=== PATIENT | female | born 1955 | race Caucasian/White ===

== ENCOUNTER → 2023-05-19 11:12 | Outpatient (CLI) | payer MEDICARE, SELFPAY ==
--- NOTE | ~2023-05-19 | MR_ITS ---
MRI of the lumbar spine Clinical History: Back pain Technique: Axial T2-weighted images, and sagittal T1-weighted, T2-weighted, and T2 fat-sat images wer e acquired. Findings: There is a chronic mild to moderate compression deformity of L1, with loss of height, no ma rrow edema. There is minimal grade 1 anterolisthesis of L4 over L5. No suspicious bone marrow signal abnormality seen. At L1-L2, there is mild diffuse disc bulge and mild to moderate facet arthropathy. No central canal s tenosis. There is mild bilateral neural foraminal narrowing, right worse than left. At L2-L3, there is disc bulge with severe facet arthropathy, which contributes to moderate to severe central canal stenosis/thecal sac compression. There is moderate to advanced bilateral neural foramin al narrowing. At L3-L4, disc bulge and severe facet arthropathy result in severe spinal canal stenosis/thecal sac c ompression. There is moderate to severe bilateral neural foraminal narrowing. At L4-L5, there is disc bulge and severe facet arthropathy, resulting in moderate to severe central c anal stenosis/thecal sac compression. There is severe bilateral neural foraminal narrowing. At L5-S1, there is disc bulge and severe facet arthropathy. No central canal stenosis. There is mild bilateral neural foraminal narrowing, left worse than right. Paravertebral soft tissues are unremarkable. Impression: Advanced degenerative spondylosis, as detailed above. Findings are probably worst at L2-L3, L3-L4, an d L4-L5. Chronic compression fracture of L1. Minimal grade 1 anterolisthesis of L4 over L5. Reviewed, dictated and finalized at location . Impression: Advanced degenerative spondylosis, as detailed above. Findings are probably wor st at L2-L3, L3-L4, and L4-L5. Chronic compression fracture of L1. Minimal grade 1 anterolisthesis of L4 over L5.
== END ==
PROVIDERS: PCP Physician Assistant Medical; Visit Provider Physician Assistant Medical
DX: M47.816 Spondylosis without myelopathy or radiculopathy, lumbar region (principal); M43.16 Spondylolisthesis, lumbar region; M48.56XA Collapsed vertebra, not elsewhere classified, lumbar region, initial encounter for fracture
CPT/HCPCS: 72148

== ENCOUNTER 2023-08-24 12:09 | Outpatient (CLI) | payer MEDICARE, SELFPAY ==
--- NOTE | ~2023-08-24 | XR_ITS ---
EXAMINATION: XR shoulder RT min 2V INDICATION: Right shoulder pain TECHNIQUE: Four views of the right shoulder are submitted. COMPARISON: None FINDINGS: Normal alignment. No fracture. There is moderate glenohumeral and acromioclavicular joint o steoarthritis. Soft tissues are unremarkable. IMPRESSION: 1. No acute osseous abnormality. Reviewed, dictated and finalized at location B. TROPHYSIOLOGY TECHNICIAN
--- NOTE | ~2023-08-24 | XR_ITS ---
EXAMINATION: XR hip BI 2V w AP pelvis DATE: 08/24/2023 12:53 INDICATION: Hip pain TECHNIQUE: AP view the pelvis and two views of each hip were obtained. COMPARISON: None. FINDINGS: There is moderate to severe osteoarthritis of the hips. There is a subtle subcapital lucenc y of the right hip. No displaced fracture is identified. There are phleboliths of the pelvis. A bone island is noted in the left ilium. IMPRESSION: 1. Possible nondisplaced subcapital fracture of the right hip. Recommend further evaluation with CT o r MRI. Reviewed, dictated and finalized at location B. RMATICS SCIENTIST IMPRESSION: 1. Possible nondisplaced subcapital fracture of the right hip. Recommend furthe r evaluation with CT or MRI.
== END 2023-08-24 12:10 | disposition home or self-care (01) ==
PROVIDERS: PCP Physician Assistant Medical; Visit Provider Physician Assistant
DX: M25.551 Pain in right hip (principal); M25.552 Pain in left hip; M25.511 Pain in right shoulder; M16.11 Unilateral primary osteoarthritis, right hip; M16.12 Unilateral primary osteoarthritis, left hip; R93.6 Abnormal findings on diagnostic imaging of limbs
CPT/HCPCS: 73030; 73521

== ENCOUNTER 2024-01-05 12:19 | Outpatient (CLI) | payer MEDICARE, SELFPAY ==
[2024-01-05 13:05] LABS: Appearance Urine Cloudy (Clear); Bacteria Urine 1+ /hpf; Bilirubin Urine Negative (Negative); Blood Urine Negative (Negative); Color Urine Yellow (Yellow); Glucose Urine UA Negative (Negative); Ketones Urine Negative (Negative); Leukocyte Esterase Ur Negative LEU/UL (Negative); Need Manual Microscopic Reviewed; Nitrate Urine Negative (Negative); Non Pathogenic Casts 0-2; Protein Urine Negative (Negative); RBC Urine 0-2 /hpf (0-2); Specific Grav Ur 1.007 (1.001-1.035); Squamous Epithelial Cell Urine Many /hpf (Few); Urobilinogen Urine 0.2 mg/dL (<2.0)
[2024-01-05 13:07] LABS: Add Urine Microscopic? YES
--- NOTE | 2024-01-05 13:17 | ECG_ITS ---
SEE SCANNED COPY FOR CONFIRMED REPORT MTDD
== END 2024-01-05 12:20 | disposition home or self-care (01) ==
PROVIDERS: PCP Physician Assistant Medical; Visit Provider Orthopaedic Surgery
DX: E03.9 Hypothyroidism, unspecified (principal); I10 Essential (primary) hypertension; H55.09 Other forms of nystagmus
CPT/HCPCS: 81001; 93005

== ENCOUNTER 2024-03-07 13:45 | Outpatient (CLI) | payer MEDICARE, SELFPAY ==
[2024-03-07 14:58] LABS: Basophils Absolute Auto 0.1 K/mm3 (0.0-0.1); Basophils Percent Auto 0.6 % (0.2-1.2); Eosinophils Absolute Auto 0.1 K/mm3 (0-0.3); Eosinophils Percent Auto 1.2 % (0-4.4); Hematocrit 37.8 % (37.0-47.0); Hemoglobin 12.8 g/dL (12.0-15.0); Immature Granulocyte Absolute 0.04 K/mm3 (0.00-0.031); Immature Granulocyte Percent A 0.5 % (0-0.5); Lymphocytes Absolute Auto 1.99 K/mm3 (0.9-3.2); Mean Corpuscular HGB Conc 33.9 g/dl (32-36); Mean Corpuscular Hemoglobin 30.1 pg (26-34); Mean Corpuscular Volume 88.9 fl (80-100); Mean Platelet Volume 9.1 fl (7.4-10.4); Monocytes Absolute Auto 0.5 K/mm3 (0.1-0.6); Monocytes Percent Auto 6.5 % (2.6-8.5); Neutrophils Absolute Auto 5.6 K/mm3 (1.3-6.7); Neutrophils Percent Auto 67.2 % (45.5-73.1); Platelet Count Result 291 k/mm3 (150-375); Red Blood Count 4.25 M/mm3 (4.2-5.4); Red Cell Distribution Width 12.9 % (11.5-14.5); White Blood Count 8.3 K/mm3 (4.5-10.0)
[2024-03-07 14:59] LABS: Appearance Urine Clear (Clear); Bilirubin Urine Negative (Negative); Blood Urine Negative (Negative); Color Urine Yellow (Yellow); Glucose Urine UA Negative (Negative); Ketones Urine Negative (Negative); Leukocyte Esterase Ur Negative LEU/UL (Negative); Nitrate Urine Negative (Negative); Protein Urine Negative (Negative); Specific Grav Ur 1.006 (1.001-1.035); Urobilinogen Urine 0.2 mg/dL (<2.0)
[2024-03-07 15:08] LABS: INR 0.9; Prothrombin Time 12.7 Seconds (11.1-14.7)
[2024-03-07 15:09] LABS: Partial Thromboplastin Time 31.8 Seconds (22.3-36.8)
[2024-03-07 15:10] LABS: Add Urine Microscopic? NO
[2024-03-07 15:13] LABS: Albumin Level 4.3 g/dL (3.5-5.1); Anion Gap 7 mmol/L (4-12); Blood Urea Nitrogen 11 mg/dL (7-17); Calcium 9.3 mg/dL (8.4-10.2); Carbon Dioxide 29 mmol/L (22-30); Chloride 101 mmol/L (98-107); Estimated Glomerular Filt Rate > 60; Glucose 84 mg/dL (65-110); Potassium 4.1 mmol/L (3.4-5.0); Sodium 137 mmol/L (137-145)
[2024-03-07 15:40] LABS: Urine Cotinine NEGATIVE
[2024-03-07 16:10] LABS: MRSA (PCR) NOT DETECTED (NOT DETECTE)
[2024-03-07 16:13] LABS: Hemoglobin A1C 5.1 % (<5.7)
== END 2024-03-07 13:46 | disposition home or self-care (01) ==
LOC: ANHSURGERY 13:49
PROVIDERS: PCP Physician Assistant Medical; Visit Provider Orthopaedic Surgery
DX: M16.11 Unilateral primary osteoarthritis, right hip (principal); Z01.818 Encounter for other preprocedural examination
CPT/HCPCS: 80048; 80307; 81003; 82040; 83036; 85025; 85610; 85730; 86850; 86900; 86901; 87641

== ENCOUNTER 2024-03-20 02:16 | Day surgery (SDC) | payer MEDICARE, SELFPAY ==
[2024-03-07 13:54] VITALS: BMI 36.4
--- NOTE | 2024-03-07 14:08 | PC.NURSE ---
Report to the Outpatient Waiting Room, entrance under the green pavilion located off [facility], at time _9:30 AM on date __03/20/24 . Planned Procedure Time: __11:30 AM . Time changes happen often and if your time is changed the preop area will call you the afternoon before. - You and your visitor will be asked to self-screen and do not enter if you have any COVID symptoms. - A mask is optional within the hospital at this time. Patients may have clear liquids (water, carbonated beverages, clear teas, apple juice) until 3 hours prior to surgery ( 8:30 AM)with a maximum of 20 ounces. - No food from midnight until time of surgery - Infants may have breast milk until 4 hours before surgery, infant formula 6 hours prior to surgery. - Children will be allowed to drink immediately following surgery. If applicable, please bring a bottle or sippy cup to assist with drinking. Juice, water, soda, and popsicles are readily available. For infants on formula, please bring formula the day of surgery. Pacifiers are allowed. Take the following medications with a SIP of water the morning of surgery: ___ESCITALOPRAM,LEVOTHYROXINE DO NOT STOP ANY OF YOUR OTHER PRESCRIPTION MEDICATIONS PRIOR TO SURGERY ?EXCEPT THE FOLLOWING Medications to discontinue per physician HOLD ALL VITAMINS AND SUPPLEMENTS 3 DAYS PRE OP.LAST DOSE 03/16/[address] SANDS Please no make-up, nail yi, hairspray, perfume, deodorant, or body powder the day of surgery. No jewelry (including any body piercings) or valuables the day of surgery, leave them at home. Please take a shower or bath the night before, or the morning of, surgery with an antibacterial soap. Wear comfortable, loose fitting clothing. Children are encouraged to wear pajamas. - Jewelry must be removed prior to entering the operating room. Rings and piercings that are not removed may be cut off. - The hospital will not accept responsibility for valuables. - Please leave all valuables, including medications, at home the day of surgery. If you are going home after surgery, a licensed telephone directory distributor driver must drive you home. - NO public transportation without another adult if you receive anesthesia. - We recommend that an adult stay with you for 24 hours following discharge. - We also recommend that you do not drive, make important decision, drink alcoholic beverages, or take any drugs that were not prescribed by your health care provider for at least 24 hours after your discharge time. Follow any additional instructions given to you from your surgeon. If you or anyone in your household have experienced Covid symptoms in the past week, please notify your surgeon or the nurse liaison at the phone number below for possible testing. VERBAL AND WRITTEN instructions given to _PATIENT and asked if any additional questions and then verbalized understanding. Patient advised to call surgeon office or pre surgery nurse liaison [phone] if any additional questions.
[2024-03-07 14:34] VITALS: BP 153/97; PULSE 73; RESP 18; TEMP 36.7; O2SAT 98
[2024-03-20] VITALS (13 sets, daily range): BP systolic 118–185; BP diastolic 47–78; PULSE 70–81; RESP 9–18; TEMP 36–36.9; O2SAT 95–100
--- NOTE | ~2024-03-20 | XR_ITS ---
EXAMINATION: XR hip RT min 2V DATE: 03/20/2024 16:15 INDICATION: Postoperative evaluation following right total hip arthroplasty TECHNIQUE: Anteroposterior and lateral views of the right hip were obtained. COMPARISON: Intraoperative radiograph dated 01/05/2024 FINDINGS: Interval placement of a right total hip arthroplasty which appears well seated in near anatomic align ment. Surgical clips and expected subcutaneous gas in the postoperative bed. No fractures identified . IMPRESSION: 1. Right total hip arthroplasty, negative for postoperative purposes. Reviewed, dictated and finalized at location A.
--- NOTE | 2024-03-20 07:14 | WPDHPUPDATE1 ---
History and Physical Update Update Date/Time: 03/20/24 07:14 History and Physical has been reviewed, including an updated exam of the patient. There are NO changes in the patient's condition. Risks, benefits, and alternatives have been discussed and questions answered. Patient agrees to proceed with procedure.
--- NOTE | 2024-03-20 08:01 | WPDANESEPPF ---
Anes - Initial Pre Proc Eval Procedure: Operation Date: 03/20/24 12:00 Proposed Procedures p Right Total Hip Arthroplasty - Sandoval Negrete MD Date/Time: 03/20/24 08:01 Surgeon: Sandoval Negrete MD Pre Op Diagnosis: Rt Hip DJD Patient Data Age: 69 Gender: F Height: 1.57 m Weight: 90.4 kg Last Vital Signs Temp 36.7 C 03/07/24 14:34 Pulse 73 03/07/24 14:34 Resp 18 03/07/24 14:34 BP 153/97 H 03/07/24 14:34 Pulse Ox 98 03/07/24 14:34 O2 Del Method Room Air 03/07/24 14:34 Allergies Allergy/AdvReac Type Severity Reaction Status Date / Time No Known Allergies Allergy Unknown Verified 03/20/24 09:35 Home Medications Medication Instructions Recorded Confirmed Type cholecalciferol (vitamin D3) 25 25 mcg PO DAILY 12/29/22 03/12/24 History mcg (1,000 unit) capsule mecobalamin (vitamin B12) 1,000 1,000 mcg PO DAILY 12/29/22 03/12/24 History mcg chewable tablet omega-3 fatty acids 1,000 mg 1,000 mg PO DAILY 12/29/22 03/12/24 History capsule lisinopril 20 mg tablet 20 mg PO DAILY #90 tabs 10/18/23 03/12/24 Rx escitalopram oxalate 10 mg tablet See Rx Instructions .Route 01/17/24 03/12/24 Rx .COMPLEX #90 tabs levothyroxine 50 mcg tablet See Rx Instructions .Route 01/17/24 03/12/24 Rx .COMPLEX #90 tabs celecoxib 100 mg capsule 100 mg PO BID 02/16/24 03/12/24 History furosemide 20 mg tablet 20 mg PO DAILY #30 tabs 03/01/24 03/12/24 Rx acetaminophen 500 mg capsule 1,000 mg PO Q6H PRN Pain 03/07/24 03/12/24 History ascorbic acid (vitamin C) 1,000 mg 1,000 mg PO DAILY 03/07/24 03/12/24 History tablet chlorhexidine gluconate 4 % 1 applic topical DAILY #237 mL 03/09/24 03/12/24 Rx topical liquid (Hibiclens) Patient hx anesthesia problems: none Family hx anesthesia problems: none Results Review: All pre-operative results and documents have been reviewed as part of the pre-operative evaluation. [facility] Past Medical History Medical History Bilateral hip pain Degenerative joint disease (DJD) of hip Hypertension Hypothyroidism Low back pain Lumbar spondylosis Right shoulder pain Rotator cuff tendonitis Surgical History Surgical History (Updated 03/20/24 @ 08:02 by Gigi Gomes DO) History of appendectomy 1987 History of laparoscopic cholecystectomy 1986 History of open reduction and internal fixation (ORIF) procedure left elbow 2014 History of partial hysterectomy 1988 History of spinal surgery 1994 History of total right knee replacement 2014 History of tubal ligation Family History Family History Father Lung cancer Mother Lung cancer Type 2 diabetes mellitus Heart disease Hypertension Sibling Diabetes mellitus Hypertension Thyroid disorder Grandparent Diabetes mellitus Grandparent Diabetes mellitus Cancer Social History Social History Smoking status: Never smoker Additional smoking assessment comments: DENIES ANY FORM OF TOBACCO USE Alcohol intake: never Substance use: never Substance use type: does not use Lack of Transportation: No Lack of Food: Never True Current Housing: I Have Housing Concerned About Future Housing: No Difficulty Paying Gas/Electric Bills: No Difficulty Paying for Meds: No Currently Unemployed: No Education: Associate Degree Difficulty w/ Childcare or Family Care: No Living arrangements: with family Occupation/Education: occupation 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
[2024-03-20] MEDS: ACETAMINOPHEN 500 MG TABLET 1000 MG PO (09:08)
[2024-03-20] MEDS: LACTATED RINGERS 1,000 ML 30 ML IV CONT ×2 (10:08→16:22)
[2024-03-20] MEDS: TRANEXAMIC ACID 1,000MG/ISO100 1,000 MG/100 ML BAG 200 MG IVPB (11:17)
[2024-03-20] MEDS: ceFAZolin 2 GM/D5W 50 ML 2 GM/50 ML BAG IVPB ×2 (12:48→21:16)
[2024-03-20] MEDS: SODIUM CHLORIDE 0.9% IV 37.7 ML, MORPHINE SULFATE INJ (*CRX) 2 MG, ROPivacaine HCL 1% 2... INFILTRATE (15:01)
[2024-03-20] MEDS: TRANEXAMIC ACID 1,000 MG/10 ML AMPUL 1000 MG IV PUSH (15:04)
--- NOTE | 2024-03-20 16:04 | W.PM.PROC2 ---
Procedure Note - Detailed Date of Procedure 03/20/24 Pre-op Diagnosis Rt Hip DJD Post-op Diagnosis Same Procedure Performed R BRANDO Surgeon Sandoval Negrete MD Anesthesia General Description of Procedure THE PATIENT WAS TAKEN TO THE OPERATING ROOM IN STABLE CONDITION AND WAS PLACED IN THE LATERAL DECUBITUS AND THE RIGHT LOWER EXTREMITY WAS PREPPED AND DRAPED IN THE STERILE FASHION. INCISION WAS MADE IN THE POSTERIOR LATERAL SIDE OF THE HIP, DOWN TO THE FASCIA LAYER. THE FASCIA WAS INCISED. THE HIP WAS EXPOSED. THE SHORT EXTERNAL ROTATORS WERE EXPOSED. THE SCIATIC NERVE WAS IDENTIFIED. INCISION WAS MADE THROUGH THE SHORT EXTERNAL ROTATORS AND THE CAPSULE OF THE HIP JOINT. THE HIP WAS DISLOCATED. AN OSTEOTOMY WAS MADE TO THE FEMORAL NECK ABOUT 1 CM PROXIMAL TO THE LESSER TROCHANTER. THE ACETABULUM WAS EXPOSED. THERE WAS SEVERE DJD SEEN. BEGINNING WITH A 44 REAMER THE ACETABULUM WAS REAMED TO 52 MM. A 52 MM TRIAL WAS PLACED IN 35 DEG OF ABDUCTION AND ANTEVERSION WAS IN ALIGNMENT WITH THE TRANS ACETABULAR LIGAMENT. THE FIT WAS EXCELLENT. THE TRIAL WAS REMOVED. A 52 MM TRIDENT II COMPONENT WAS THEN TAPPED IN TO PLACE IN 35 DEG OF ABDUCTION AND ANTEVERSION IN ALIGNMENT WITH THE TRANSVERSE ACETABULAR LIGAMENT. THE FIT WAS EXCELLENT. SCREWS WERE PLACED WITH GOOD BITES. THE ACETABULAR LINER WAS PLACED AND CHECKED FOR STABILITY. NEXT THE FEMUR WAS PREPARED WITH INITIAL CANAL FINDER THEN SEQUENTIAL BROACHING UNTIL A 5 BROACH FIT WELL IN 15 OF ANTEVERSION. A +2.5 STANDARD OFFSET NECK WITH 36 MM HEAD TRIAL WAS PLACED. THE SHUCK TEST WAS EXCELLENT AND THE STABILITY IN FLEXION AND ROTATION WAS EXCELLENT. LEG LENGTHS WERE GROSSLY EQUAL. TRIALS WERE REMOVED. A JONH INSIGNIA STEM WAS PLACED WITH A STANDARD OFFSET NECK. THE FIT WAS EXCELLENT IN 15 DEG OF ANTEVERSION. A +2.5 CERAMIC 36 MM FEMORAL HEAD WAS PLACED. THE HIP WAS TRIALED AND THE STABILITY WAS EXCELLENT WERE THE LEG LENGTHS AND THE SHUCK TEST. THE WOUND WAS IRRIGATED WITH STERILE BETADINE AND WATER FOR 3 MIN. THEN WASHED AGAIN. THE SCIATIC NERVE WAS IDENTIFIED AGAIN. THE CAPSULE AND THE EXTERNAL ROTATORS WERE APPROXIMATED WITH NUMBER 1 VICRYL. THE FASCIA WITH No 2 QUIL AND THE SUB CUTANEOUS LAYER WITH 2-0 ABSORBABLE SUTURE AND TANA FOR THE SKIN. STERILE DRESSING WAS APPLIED. PATIENT WAS PLACED BACK ON TO THE SUPINE POSITION AND WAS EXTUBATED Estimated Blood Loss 350 Complications No immediate complications Condition Stable Disposition PACU
--- NOTE | 2024-03-20 17:49 | ADMGEN ---
This patient, Trini Cain, was admitted to 3 [facility] Surg Room 304-01. Patient/family oriented to hospital policies and general routines including ID bracelet, bed and alarms, visiting hours, pain management, procedures, bathroom and other care routines, personal items, smoking policy, room service/diet, and visiting hours. Information on how to activate the Rapid Response Team has been discussed. Patient/Family are encouraged to report perceived risks to care and to ask questions if they do not understand what they are told or what they should do.
[2024-03-20] MEDS: SODIUM CHLORIDE 0.9% IV 1,000 ML 125 ML IV CONT (17:53)
[2024-03-20] MEDS: ASPIRIN 325 MG ENTERIC TABLET PO (20:20)
[2024-03-20] MEDS: FAMOTIDINE 20 MG TABLET PO (20:20)
[2024-03-20] MEDS: CELECOXIB 100 MG CAPSULE PO (20:20)
[2024-03-20] MEDS: SENNA/DOCUSATE SODIUM TABLET 2 TAB PO (20:21)
[2024-03-21] MEDS: oxyCODONE/ACETAMINOPHEN (*CRX) 10-325 MG TABLET 1 TAB PO (00:35)
[2024-03-21] MEDS: SODIUM CHLORIDE 0.9% IV 1,000 ML 125 ML IV CONT ×2 (00:36→04:17)
[2024-03-21 05:13] VITALS: O2SAT 98
[2024-03-21] MEDS: ceFAZolin 2 GM/D5W 50 ML 2 GM/50 ML BAG IVPB ×2 (05:13→13:27)
[2024-03-21] MEDS: LEVOTHYROXINE SODIUM 50 MCG TABLET BY MOUTH (05:15)
[2024-03-21 05:18] VITALS: O2SAT 96
[2024-03-21 05:41] VITALS: BP 140/62; PULSE 72; RESP 16; TEMP 36.6; O2SAT 99
[2024-03-21 07:05] LABS: Anion Gap 6 mmol/L (4-12); Blood Urea Nitrogen 13 mg/dL (7-17); Calcium 8.2 mg/dL (8.4-10.2); Carbon Dioxide 27 mmol/L (22-30); Chloride 103 mmol/L (98-107); Estimated CRCL calculation 54 ml/min; Estimated Glomerular Filt Rate > 60; Glucose 131 mg/dL (65-110); Potassium 4.6 mmol/L (3.4-5.0); Sodium 136 mmol/L (137-145)
[2024-03-21 07:17] LABS: Basophils Percent Auto 0.1 % (0.2-1.2); Hematocrit 30.7 % (37.0-47.0); Hemoglobin 10.1 g/dL (12.0-15.0); Immature Granulocyte Absolute 0.12 K/mm3 (0.00-0.031); Immature Granulocyte Percent A 0.6 % (0-0.5); Lymphocytes Absolute Auto 0.81 K/mm3 (0.9-3.2); Lymphocytes Percent Auto 4.1 % (18.3-44.2); Mean Corpuscular HGB Conc 32.9 g/dl (32-36); Mean Corpuscular Volume 91.1 fl (80-100); Mean Platelet Volume 9.7 fl (7.4-10.4); Monocytes Absolute Auto 1.1 K/mm3 (0.1-0.6); Monocytes Percent Auto 5.5 % (2.6-8.5); Neutrophils Absolute Auto 17.7 K/mm3 (1.3-6.7); Neutrophils Percent Auto 89.7 % (45.5-73.1); Platelet Count Result 270 k/mm3 (150-375); Red Blood Count 3.37 M/mm3 (4.2-5.4); Red Cell Distribution Width 13.2 % (11.5-14.5); White Blood Count 19.7 K/mm3 (4.5-10.0)
[2024-03-21 08:00] VITALS: BP 153/60; PULSE 82; RESP 18; TEMP 36.6; O2SAT 97
[2024-03-21] MEDS: FAMOTIDINE 20 MG TABLET PO (08:41)
[2024-03-21] MEDS: ESCITALOPRAM OXALATE 10 MG TABLET BY MOUTH (08:41)
[2024-03-21] MEDS: FUROSEMIDE 20 MG TABLET PO (08:41)
[2024-03-21] MEDS: oxyCODONE/ACETAMINOPHEN (*CRX) 5-325 MG TABLET 1 TABLET PO (08:42)
[2024-03-21] MEDS: CHOLECALCIFEROL 1,000 UNITS TABLET 1000 UNITS PO (08:44)
[2024-03-21] MEDS: ASCORBIC ACID 500 MG TABLET 1000 MG PO (08:44)
[2024-03-21] MEDS: SENNA/DOCUSATE SODIUM TABLET 2 TAB PO (08:44)
[2024-03-21] MEDS: lisinopriL 20 MG TABLET PO (08:45)
[2024-03-21] MEDS: ASPIRIN 325 MG ENTERIC TABLET PO (08:45)
[2024-03-21] MEDS: CELECOXIB 100 MG CAPSULE PO (08:45)
[2024-03-21] MEDS: ONDANSETRON INJ 4 MG/2 ML VIAL IV PUSH (08:49)
[2024-03-21] MEDS: polyethylene glycoL 3350 17 GM POWD.PACK PO (08:51)
--- NOTE | 2024-03-21 10:56 | PM.PNORT ---
Progress Note: A&P Assessment and Plan (1) Degenerative joint disease (DJD) of hip: Qualifiers: Osteoarthritis type: primary Laterality: right Qualified Code(s): M16.11 - Unilateral primary osteoarthritis, right hip Code(s): M16.9 - Osteoarthritis of hip, unspecified Status: Acute Assessment and Plan: POD 1 DOING WELL. OK TO DC HOME F/U IN 3 WEEKS. Subjective Subjective Date/Time Seen: 03/21/24 10:56 Interval history: POD 1 DOING WELL. NO CALF PAIN Exam Extrem: Other: VSS AFEBRILE DRESSING DRY NV INTACT NEG HOMANS SIGN CALF AND THIGH NON TENDER Objective Data Vital Signs Vital Signs: Vital Signs - 24 hr 03/20/24 11:08 03/20/24 15:59 03/20/24 16:14 Temperature 36.7 C 36.4 C Pulse Rate 73 81 70 Respiratory Rate 16 10 L 9 L Blood Pressure 158/78 H 118/70 137/69 Pulse Oximetry 99 99 99 Oxygen Delivery Room Air Simple Face Mask Simple Face Mask Oxygen Flow Rate 8 8 03/20/24 16:29 03/20/24 16:44 03/20/24 16:59 Temperature Pulse Rate 79 76 80 Respiratory Rate 12 10 L 11 L Blood Pressure 145/63 H 145/58 H 142/68 H Pulse Oximetry 99 95 97 Oxygen Delivery Room Air Nasal Cannula Nasal Cannula Oxygen Flow Rate 2 2 03/20/24 17:14 03/20/24 17:30 03/20/24 17:45 Temperature 36.2 C L 36.1 C L Pulse Rate 78 76 75 Respiratory Rate 12 16 16 Blood Pressure 146/57 H 131/61 121/54 L Pulse Oximetry 98 99 99 Oxygen Delivery Nasal Cannula Oxygen Flow Rate 2 03/20/24 18:15 03/20/24 20:44 03/20/24 21:41 Temperature 36.0 C L 36.3 C L Pulse Rate 71 70 Respiratory Rate 18 16 Blood Pressure 131/47 L 128/58 L Pulse Oximetry 100 100 100 Oxygen Delivery Nasal Cannula Oxygen Flow Rate 2 03/20/24 22:49 03/21/24 05:13 03/21/24 05:18 Temperature 36.9 C Pulse Rate 72 Respiratory Rate 16 Blood Pressure 185/61 H Pulse Oximetry 99 98 96 Oxygen Delivery Nasal Cannula Room Air Oxygen Flow Rate 2 03/21/24 05:41 03/21/24 08:14 03/21/24 08:00 Temperature 36.6 C 36.6 C Pulse Rate 72 82 Respiratory Rate 16 18 Blood Pressure 140/62 153/60 H Pulse Oximetry 99 97 Oxygen Delivery Room Air Oxygen Flow Rate Intake/Output Intake/Output: Intake & Output 03/18/24 03/19/24 03/20/24 03/21/24 23:59 23:59 23:59 23:59 Intake Total 150 1500.0 Output Total 100 Balance 150 1400.0 Meds/Results Medications: Active Medications Generic Name Dose Route Start Last Admin Trade Name Freq PRN Reason Stop Dose Admin Ascorbic Acid 1,000 mg 03/21/24 09:00 03/21/24 08:44 Ascorbic Acid 500 Mg Tablet PO 1,000 mg DAILY MARSHALL Administration Aspirin 325 mg 03/20/24 21:00 03/21/24 08:45 Aspirin 325 Mg Enteric Tablet PO 325 mg Q12HR MARSHALL Administration Celecoxib 100 mg 03/20/24 17:00 03/21/24 08:45 Celecoxib 100 Mg Capsule PO 100 mg BID MARSHALL Administration Diazepam 5 mg 03/20/24 13:04 Diazepam (*Crx) 5 Mg Tablet PO Q6H PRN Anxiety/Muscle Spasm Diphenhydramine HCl 25 mg 03/20/24 13:04 Diphenhydramine Hcl Inj 50 Mg/Ml Vial IV PUSH Q6H PRN Itching Escitalopram Oxalate 10 mg 03/21/24 09:00 03/21/24 08:41 Escitalopram Oxalate 10 Mg Tablet BY MOUTH 10 mg DAILY MARSHALL Administration Famotidine 20 mg 03/20/24 21:00 03/21/24 08:41 Famotidine 20 Mg Tablet PO 20 mg Q12HR MARSHALL Administration Furosemide 20 mg 03/21/24 09:00 03/21/24 08:41 Furosemide 20 Mg Tablet PO 20 mg DAILY MARSHALL Administration Hydromorphone HCl 1 mg 03/20/24 13:04 Hydromorphone Hcl Inj (*Crx) 1 Mg/Ml Syr IV PUSH Q2H PRN Breakthrough Pain Rated 7-10 or NPO Hydromorphone HCl 0.5 mg 03/20/24 13:04 Hydromorphone Hcl Inj (*Crx) 1 Mg/Ml Syr IV PUSH Q2H PRN Breakthrough Pain Rated 4-6 or NPO Cefazolin Sodium 2 gm in 50 mls @ 100 mls/hr 03/20/24 22:00 03/21/24 05:43 Ancef 2 Gm/D5w 50 Ml IVPB 03/21/24 14:29 Infused Q8H MARSHALL Infusion Ibuprofen 800 mg
--- NOTE | 2024-03-21 10:59 | PM.DS ---
DS: Admitting Diagnosis Discharge Date 03/21/24 Admitting Diagnosis RIGHT HIP DJD DS: Discharge Diagnosis Discharge Diagnosis (1) Degenerative joint disease (DJD) of hip: Qualifiers: Osteoarthritis type: primary Laterality: right Qualified Code(s): M16.11 - Unilateral primary osteoarthritis, right hip Code(s): M16.9 - Osteoarthritis of hip, unspecified Status: Acute DS: Summary Hospital Course Reason for hospitalization: R BRANDO Hospital Course: PATIENT WAS ADMITTED S/P TOTAL HIP ARTHROPLASTY FOR POSTOPERATIVE MEDICAL MANAGEMENT, PAIN CONTROL AND MOBILIZATION WITH PHYSICAL AND OCCUPATIONAL THERAPY. THE PATIENT PROGRESSED WELL WITH PT/OT. LABS AND VITALS REMAINED STABLE AND PAIN WELL CONTROLLED. THE PATIENT HAS BEEN CLEARED TO BE DISCHARGED HOME. FOLLOW UP APPOINTMENT SCHEDULED. DISCHARGE INSTRUCTIONS DISCUSSED AT LENGTH WITH THE PATIENT. MEDICATIONS REVIEWED. Status at Discharge Cognitive/behavioral status at discharge: STABLE Time Spent with Patient Time attestation: Total time spent providing and/or coordinating discharge services: DS: Data Data Completed and Pending Labs on day of discharge: Labs from last 24 hours 03/21/24 05:58 WBC 19.7 H RBC 3.37 L Hgb 10.1 L Hct 30.7 L MCV 91.1 MCH 30.0 MCHC 32.9 RDW 13.2 Plt Count 270 MPV 9.7 Immature Gran % (Auto) 0.6 H Neut % (Auto) 89.7 H Lymph % (Auto) 4.1 L [place] % (Auto) 5.5 Eos % (Auto) 0.0 Baso % (Auto) 0.1 L Lymph # (Auto) 0.81 L [place] # (Auto) 1.1 H Eos # (Auto) 0.0 Baso # (Auto) 0.0 Abs Immat Gran (auto) 0.12 H Absolute Neuts (auto) 17.7 H Absolute Nucleated RBC 0.000 Nucleated RBC % 0.0 Sodium 136 L Potassium 4.6 Chloride 103 Carbon Dioxide 27 Anion Gap 6 BUN 13 Creatinine 0.90 Estim Creat Clear Calc 54 Estimated GFR > 60 Glucose 131 H Calcium 8.2 L Procedures/Treatments: R BRANDO Discharge Plan Discharge Patient Disposition: Home Health Service Discharge Instructions: Post Op Total Hip Replacement Instructions Dr. Sandoval Negrete [phone] Your dressing will be changed prior to your discharge. You will be sent home with one additional dressing to be changed on post op day 7 by the home health RN. You may remove the dressing on post op day 14. Your incision was closed with dermabond, allow the dermabond to fall off naturally once your dressing is removed. Do not pull at the dermabond or disrupt incision healing. You may shower with your dressing but do not submerge in a bath tub. Do not drive or operate machinery until you are released by Dr. Negrete. Do not walk without a walker for any reason until you are released by Dr. Negrete. Continue to apply ice to the hip intermittently for additional pain relief. Protect your skin with a towel or pillow case. Continue to follow strict total hip replacement precautions. Your first post op appointment was sent to you via mail preoperatively. If you have any questions or are unable to make your appointment, please contact our office for scheduling questions. Your medications have been sent to your pharmacy. You have been sent home with pain medication. Please merchandise pickup/receiving associate an over the counter stool softener to prevent constipation due to narcotic use. Please keep this in mind during your postoperative recovery. If you are not experiencing regular bowel movements, please contact our office for further instructions. Please contact our office with any questions/concerns regarding your hip at [phone]. TAKE 2 ADULT STRENGTH ASPIRIN (325 MG) PER DAY FOR 3 WEEKS TO PREVENT BLOOD CLOTS Patient Instructions: Antibiotic Form Stand Alone Forms: General Discharge Information Follow-up/Referrals: Sandoval Negerte MD [Physician] - Keep Reg. Scheduled Appt. Discharge Medications: New oxycodone-acetaminophen [Percocet] 5-325 mg tablet 1 tablet PO Q6H PRN (Reason: pain) Qty: 30 0RF Continued mecobalamin (vitamin B1
[2024-03-21 12:00] VITALS: BP 130/53; PULSE 71; RESP 20; TEMP 36.8; O2SAT 99
--- NOTE | 2024-03-21 14:28 | WPDANESPN ---
Anes - Prog Note Post-Op Date/Time: 03/21/24 14:28 Cardiovascular status: normal Respiratory status: normal Airway patency: baseline Mental status: baseline Post-Op hydration status: other (anemia) Vital Signs: Last Vital Signs Temp 98.2 F 03/21/24 12:00 Pulse 71 03/21/24 12:00 Resp 20 03/21/24 12:00 BP 130/53 L 03/21/24 12:00 Pulse Ox 99 03/21/24 12:00 O2 Del Method Room Air 03/21/24 08:14 O2 Flow Rate 2 03/21/24 05:13 Pain Score (VAS): 0/10 I/O: Intake & Output 03/20/24 03/21/24 03/21/24 23:59 07:59 15:59 Intake Total 100 1350.0 200 Output Total 100 Balance 100 1350.0 100 Laboratory Tests 03/21/24 05:58 03/21/24 05:58 03/21/24 05:58 WBC 19.7 H RBC 3.37 L Hgb 10.1 L Hct 30.7 L MCV 91.1 MCH 30.0 MCHC 32.9 RDW 13.2 Plt Count 270 MPV 9.7 Immature Gran % (Auto) 0.6 H Neut % (Auto) 89.7 H Lymph % (Auto) 4.1 L [place] % (Auto) 5.5 Eos % (Auto) 0.0 Baso % (Auto) 0.1 L Lymph # (Auto) 0.81 L [place] # (Auto) 1.1 H Eos # (Auto) 0.0 Baso # (Auto) 0.0 Abs Immat Gran (auto) 0.12 H Absolute Neuts (auto) 17.7 H Absolute Nucleated RBC 0.000 Nucleated RBC % 0.0 Sodium 136 L Potassium 4.6 Chloride 103 Carbon Dioxide 27 Anion Gap 6 BUN 13 Creatinine 0.90 Estim Creat Clear Calc 54 Estimated GFR > 60 Glucose 131 H Calcium 8.2 L Post-procedural complaints: none Patient Feedback: Patient satisfied with anesthetic care.
== END 2024-03-21 14:50 | disposition home health service (06) ==
LOC: ANHSURGERY 13:13 → ANH3MEDSUR 17:21
PROVIDERS: PCP Physician Assistant Medical; Visit Provider Orthopaedic Surgery
PROC: (CPT 27130; principal; 2024-03-20 12:00)
DX: M16.11 Unilateral primary osteoarthritis, right hip (principal); I10 Essential (primary) hypertension; E03.9 Hypothyroidism, unspecified; M47.816 Spondylosis without myelopathy or radiculopathy, lumbar region; E66.9 Obesity, unspecified; Z68.36 Body mass index [BMI] 36.0-36.9, adult
CPT/HCPCS: 27130; 36415; 73502; 80048; 80307; 81003; 82040; 83036; 85025; 85610; 85730; 86850; 86900; 86901; 87641; 97110; 97161; 97165; 97530; 97535; A9270; C1776; J0171; J0330; J0690; J1100; J1170; J1885; J2250; J2270; J2371; J2405; J2704; J2795; J3010; J7030; J7120

== ENCOUNTER 2024-08-16 11:33 | Outpatient (CLI) | payer MEDICARE, SELFPAY ==
[2024-08-16 11:53] LABS: Add Urine Microscopic? NO; Appearance Urine Clear (Clear); Bilirubin Urine Negative (Negative); Blood Urine Negative (Negative); Color Urine Yellow (Yellow); Glucose Urine UA Negative (Negative); Ketones Urine Negative (Negative); Leukocyte Esterase Ur Negative LEU/UL (Negative); Nitrate Urine Negative (Negative); Protein Urine Negative (Negative); Specific Grav Ur 1.007 (1.001-1.035); Urobilinogen Urine 0.2 mg/dL (<2.0); pH Urine 6.5 (5.0-9.0)
--- NOTE | 2024-08-16 12:20 | ECG_ITS ---
Test Date: 2024-08-16 12:35:27 Measurements Intervals Paul Rate: 66 P: 68 CA: 169 QRS: 12 QRSD: 87 T: 30 QT: 369 QTc: 387 Interpretive Statements SINUS RHYTHM No previous ECG available for comparison Electronically Signed On 08-16-2024 13:58:27 CYBER SECURITY INSTRUCTOR by Luisito Weems M.D.
== END 2024-08-16 11:34 | disposition home or self-care (01) ==
PROVIDERS: PCP Physician Assistant Medical; Visit Provider Nurse Practitioner Family
DX: R53.83 Other fatigue (principal); I10 Essential (primary) hypertension
CPT/HCPCS: 81003; 93005

== ENCOUNTER 2024-10-17 13:44 | Outpatient (CLI) | payer MEDICARE, SELFPAY ==
--- OUTSIDE RECORDS SUMMARY | 2024-10-17 14:46 | XMS_ITS | Patient Health Summary ---
Author Organization [facility] Address [address] [place] [address] Care Team Providers Care Paper Winder Name Role Phone Unavailable Primary Care Provider Unavailabl e Note from [facility],non-owned Affiliates and Associated Physician Practices is amultiple site organization consisting of ambulatory clinics and hospital sitesin [place], [place], [place] and [place]. This disclosure is being madepursuant to the Care Everywhere program and may not contain all information available regarding this patient. Last updated 18.[facility] Social History Tobacco Use Types Packs/Day Years Used Date Smoking Tobacco: Never Assessed Sex and Gender Information Value Date Recorded Sex Assigned at Not on file Gender Identity Not on file Sexual Orientation Not on file
--- OUTSIDE RECORDS SUMMARY | 2024-10-17 14:46 | XMS_ITS | Continuity of Care Document ---
Author Organization [facility] Address [address] [place] [address] Phone Care Team Providers Care People Manager Name Role Phone Gina Davila DO Unavailable Unavailable Advance Directives Directive Yes / No Effective Date File Name No Information Encounters Encounter Description Practice Location Reason(s) For Visit Diagnoses Date Provider Providers Copied on Encounter [facility], [address], [place], [place], [id number], [place] tel:[phone] [facility] No Information Giovanni Fuentes. [address] [address], [place], [place], [id number], [place]. tel:[phone] Referring Provider: Shabbir Grace [address] [address], [place], [address] . tel:[phone] Family History Family Member Type Diagnosis Age At Onset No Information Payers Payer name Insurance type Covered democrat ID Authoriza tirebecca(s) C[employer]lewis [id number] Social History Type Description Quantity Date Captured Comments Sex Female Smoking Status No Information Chief Complaint And Reason For Visit No Information Reason For Referral Reason For Referral No Information History Of Present Illness Encounter Date Complaint History Of Prese nt Illness No Information Functional Status Date Functional Assessmen t No Information Instructions Date Instruction Additional Infor mation No Information Assessments Type Assessment Date No Information Patient Care Teams Name Effective Dates (start - stop) Status Members No Information
--- OUTSIDE RECORDS SUMMARY | 2024-10-17 14:46 | XMS_ITS | Clinical Summary ---
Author Organization [facility] [employer] Address [address] [place] [address] Care Team Providers Care Miller Helper Name Role Phone Unavailable Primary Care Provider Unavailabl e Source Comments [facility],non-owned Affiliates and Associated Physician Practices is amultiple site organization consisting of ambulatory clinics and hospital sitesin [place], [place], [place] and [place]. This disclosure is being madepursuant to the Care Everywhere program and may not contain all information available regarding this patient. Last updated 18.[facility] Social History Tobacco Use Types Packs/Day Years Used Date Smoking Tobacco: Never Assessed Sex and Gender Information Value Date Recorded Sex Assigned at Not on file Gender Identity Not on file Sexual Orientation Not on file Plan of Treatment Health Maintenance Due Date Last Done Comments BONE DENSITY TESTING 1955 COLOGUARD (AGES 45-75) - COL ON CA SCREENING 1954 COLON MONITORING 1954 COLONOSCOPY - COLON CA SCREENING 1954 CT COLONOGRAPHY - COLON CA SCREENING 1954 Colorectal Cancer Screening 1954 FIT - COLON CA SCREENING 1954 FLEX SIG - COLON CA SCREENING 1954 LIPID TESTING 1954 MAMMOGRAM 1954 HEPATITIS C SCREENING 02/28/1972 DTAP/TDAP/TD VACCINES (1 - Tdap) 1973 PNEUMOCOCCAL VACCINE 50+ (1 of 1 - PCV) 2004 ZOSTER VACCINE (1 of 2) 2004 COVID-19 VACCINE ( - 2023-2 5 season) 2024 INFLUENZA VACCINE (#1) 2024 DEPRESSION SCREENING 09/12/2024 Respiratory Syncytial Virus (RSV) Vaccine Pt: or over 60 yrs (1 - 1-dose 75+ series) 2029 HEPATITIS B VACCINE Aged Out No longe r eligible based on patient's age to complete this topic HIB VACCINE Aged Out No longer eligi ble based on patient's age to complete this topic HPV VACCINE Aged Out No longer eligi ble based on patient's age to complete this topic MENINGOCOCCAL (Group B) VACCINE Aged Out No longer eligible based on patient's age to complete this topic MENINGOCOCCAL VACCINE Aged Out No william alyssia eligible based on patient's age to complete this topic
--- OUTSIDE RECORDS SUMMARY | 2024-10-17 14:46 | XMS_ITS | Clinical Summary ---
Author Organization [facility] Address [address] [place] [address] Care Team Providers Care Hand Embroiderer Name Role Phone Rachel Estrella PA-C Primary Care Provider [phone] Allergies Active Allergy Reactions Criticality Noted Date Comments Nsaids GI Upset 04/09/2017 Medications levothyroxine (SYNTHROID) 50 MCG tablet Take 1 tablet (50 mcg total) by mouth daily. Active Cholecalciferol (VITAMIN D3) 2000 units Tab Take 1 tablet (50 mcg total) by mouth daily. Active vitamin B-12 (CYANOCOBALAMIN) 1000 mcg tablet Acti ve escitalopram 10 MG tablet Take 1 tablet (10 mg total) by mouth daily. Active celecoxib (CELEBREX) 100 MG capsule 09/29/2023 Active lisinopril (PRINIVIL) 20 MG tablet 10/18/2023 Active Active Problems No known active problems Immunizations Name Administration Dates Next Due PFIZER COVID-19 (ORIGINAL FO RMULATION, PURPLE CAP) mRNA, LNP-S, PF, 30 MCG/0.3 ML DOSE 07/02/2021,12/01/2020,11/10/2020 Social History Tobacco Use Types Packs/Day Years Used Date Smoking Tobacco: Never Smokeless Tobacco: Never Tobacco Cessation:Counseling Given: No Alcohol Use Standard Drinks/Week Comments No 0 (1 standard drink = 0.6 oz pur e alcohol) AUDIT-C Answer Date Recorded Frequency of Alcohol Consumption Never 02/27/2019 Average Number of Drinks Not on file 019 Frequency of Binge Drinking Not on file 02/10 PHQ-2 Answer Date Recorded Patient Health Questionnaire-2 Score 0 10/24/2023 Comments No Sex and Gender Information Value Date Recorded Sex Assigned at Not on file Legal Sex Female 10:29 PM CDT Gender Identity Not on file Sexual Orientation Not on file Last Filed Vital Signs Vital Sign Reading Time Taken Comments Blood Pressure 138/86 10/24/2023 9:22 AM ENGINE BUILDUP MECHANIC Pulse 78 10/24/2023 9:22 AM ENGINE BUILDUP MECHANIC Temperature 36.2 C (97.1 F) 10/24/2023 9:22 AM ENGINE BUILDUP MECHANIC Respiratory Rate 16 10/24/2023 9:22 AM ENGINE BUILDUP MECHANIC Oxygen Saturation 98% 10/24/2023 9:22 AM ENGINE BUILDUP MECHANIC Inhaled Oxygen Concentration - - Weight 90.4 kg (199 lb 3.2 oz) 10/24/2023 9:22 A M ENGINE BUILDUP MECHANIC Height 162.6 cm (5' 4 ) 10/24/2023 9:22 AM ENGINE BUILDUP MECHANIC Body Mass Index 34.19 10/24/2023 9:22 AM ENGINE BUILDUP MECHANIC Plan of Treatment Health Maintenance Due Date Last Done Comments Colorectal Cancer Screening Colonoscopy (10 Years) 1954 Hepatitis C 1972 DTaP, Tdap and Td Vaccines ( 1 - Tdap) 1973 Mammogram Screening 1994 Zoster Vaccines (1 of 2) 2004 Annual Medicare Wellness Visit 2019 Dexa Scan (General) 2019 Pneumococcal Vaccine: 65+ Years (1 of 1 - PCV) 2019 COVID-19 Vaccine (4 - 2023-2 5 season) 2024 07/02/2021, 12/01/2020, 11/10/2020 Influenza Adult (#1) 2024 PHQ-2 (Physician [place]) 09/12/2024 10/24/2023 PHQ-2 (Physician [place]) 10/24/2024 10/24/2023 RSV Immunization or 60+ Years (1 - 1-dose 75+ series) 2029 Meningococcal B Vaccine Aged Out No l onger eligible based on patient's age to complete this topic Meningococcal Vaccine Aged Out No william alyssia eligible based on patient's age to complete this topic RSV Immunizations Under 20 Months Aged Out No longer eligible b ased on patient's age to complete this topic Insurance MEDICARE [facility] Care Teams Hand Embroiderer Relationship Specialty Start Date End Date Rachel Estrella PA-C [address] [place], [place] [address] [place] [address] PCP - General PHYSICIAN CAD APPLICATION SUPPORT SPECIALIST 05/05/23
--- OUTSIDE RECORDS SUMMARY | 2024-10-17 14:46 | XMS_ITS | Referral Summary ---
Author Organization [facility] Address [address] [place] [address] Care Team Providers Care Growth Media Mixer Mushroom Name Role Phone Unavailable Primary Care Provider Unavailabl e Source Comments [facility],non-owned Affiliates and Associated Physician Practices is amultiple site organization consisting of ambulatory clinics and hospital sitesin [place], [place], [place] and [place]. This disclosure is being madepursuant to the Care Everywhere program and may not contain all information available regarding this patient. Last updated 18.[facility] Social History Tobacco Use Types Packs/Day Years Used Date Smoking Tobacco: Never Assessed Sex and Gender Information Value Date Recorded Sex Assigned at Not on file Gender Identity Not on file Sexual Orientation Not on file Plan of Treatment Not on file
[2024-10-17 14:56] LABS: Basophils Absolute Auto 0.1 K/mm3 (0.0-0.1); Basophils Percent Auto 0.6 % (0.2-1.2); Eosinophils Absolute Auto 0.3 K/mm3 (0-0.3); Eosinophils Percent Auto 3.6 % (0-4.4); Hematocrit 38.6 % (37.0-47.0); Hemoglobin 12.7 g/dL (12.0-15.0); Immature Granulocyte Absolute 0.03 K/mm3 (0.00-0.031); Immature Granulocyte Percent A 0.4 % (0-0.5); Lymphocytes Absolute Auto 1.88 K/mm3 (0.9-3.2); Lymphocytes Percent Auto 22.6 % (18.3-44.2); Mean Corpuscular HGB Conc 32.9 g/dl (32-36); Mean Corpuscular Hemoglobin 28.7 pg (26-34); Mean Corpuscular Volume 87.1 fl (80-100); Mean Platelet Volume 9.1 fl (7.4-10.4); Monocytes Absolute Auto 0.5 K/mm3 (0.1-0.6); Monocytes Percent Auto 5.5 % (2.6-8.5); Neutrophils Absolute Auto 5.6 K/mm3 (1.3-6.7); Neutrophils Percent Auto 67.3 % (45.5-73.1); Platelet Count Result 305 k/mm3 (150-375); Red Blood Count 4.43 M/mm3 (4.2-5.4); White Blood Count 8.3 K/mm3 (4.5-10.0)
[2024-10-17 14:58] LABS: Add Urine Microscopic? NO; Appearance Urine Clear (Clear); Bilirubin Urine Negative (Negative); Blood Urine Negative (Negative); Color Urine Yellow (Yellow); Glucose Urine UA Negative (Negative); Ketones Urine Negative (Negative); Leukocyte Esterase Ur Negative LEU/UL (Negative); Nitrate Urine Negative (Negative); Protein Urine Negative (Negative); Specific Grav Ur 1.005 (1.001-1.035); pH Urine 6.5 (5.0-9.0)
[2024-10-17 15:06] LABS: Albumin Level 4.1 g/dL (3.5-5.1); Anion Gap 13 mmol/L (4-12); Blood Urea Nitrogen 6 mg/dL (7-17); Calcium 9.4 mg/dL (8.4-10.2); Carbon Dioxide 26 mmol/L (22-30); Chloride 100 mmol/L (98-107); Estimated Glomerular Filt Rate > 60; Glucose 101 mg/dL (65-110); Potassium 3.5 mmol/L (3.4-5.0); Sodium 139 mmol/L (137-145)
[2024-10-17 15:09] LABS: INR 0.9; Prothrombin Time 12.8 Seconds (11.1-14.7); Urine Cotinine NEGATIVE
[2024-10-17 16:09] LABS: MRSA (PCR) NOT DETECTED (NOT DETECTE)
[2024-10-17 18:08] LABS: Hemoglobin A1C 5.3 % (<5.7)
== END 2024-10-17 13:45 | disposition home or self-care (01) ==
LOC: ANHSURGERY 13:49
PROVIDERS: PCP Physician Assistant Medical; Visit Provider Orthopaedic Surgery
DX: Z01.818 Encounter for other preprocedural examination (principal); M17.12 Unilateral primary osteoarthritis, left knee
CPT/HCPCS: 80048; 80307; 81003; 82040; 83036; 85025; 85610; 85730; 87641

== ENCOUNTER 2024-10-31 00:41 | Day surgery (SDC) | payer MEDICARE, SELFPAY ==
--- NOTE | 2024-10-17 13:50 | PC.NURSE ---
Addendum entered by Dana Pride RN 10/17/24 14:09: IBUPROFEN PER DR SANDS Original Note: Report to the Outpatient Waiting Room, entrance under the green pavilion located off [facility], at time 6 AM on date _10/31/24 . Planned Procedure Time: _7:30 AM .? Time changes happen often and if your time is changed the preop area will call you the afternoon before. - You and your visitor will be asked to self-screen and do not enter if you have any COVID symptoms. Please call surgeon if you need to reschedule. - A mask is optional within the hospital at this time. Patients may have clear liquids (water, carbonated beverages, clear teas, apple juice) until 3 hours prior to surgery( 4:30 AM) with a maximum of 20 ounces. - No food from midnight until time of surgery and no smoking, or chewing tobacco (or any form of nicotine). No chewing gum, candy or mints. Take only the following medications with a SIP of water on the morning of surgery: _ESCITALOPRAM,LEVOTHYROXINE DO NOT STOP ANY OF YOUR OTHER PRESCRIPTION MEDICATIONS PRIOR TO SURGERY EXCEPT THE FOLLOWING Hold all vitamins and supplements for 3 days per anesthesiologist. Medications to discontinue per physician ____HOLD IBUPROFEN___7 DAYS PRE OP PER DR CABRERA Date to take last dose__10/23/24 Please no make-up, nail albanian, hairspray, perfume, deodorant, or body powder the day of surgery.? No jewelry (including any body piercings) or valuables the day of surgery, leave them at home.? Please take a shower or bath the night before, or the morning of, surgery with an antibacterial soap.? Wear comfortable, loose fitting clothing.? Children are encouraged to wear pajamas. - Jewelry must be removed prior to entering the operating room.? Rings and piercings that are not removed may be cut off. - The hospital will not accept responsibility for valuables.? - Please leave all valuables, including medications, at home the day of surgery. If you are going home after surgery, a licensed grain combine driver must drive you home.? - NO public transportation without another adult if you receive anesthesia. - We recommend that an adult stay with you for 24 hours following discharge. - We also recommend that you do not drive, make important decision, drink alcoholic beverages, or take any drugs that were not prescribed by your health care provider for at least 24 hours after your discharge time. Follow any additional instructions given to you from your surgeon. VERBAL AND WRITTEN instructions given to __PATIENT and asked if any additional questions and then verbalized understanding. Patient advised to call surgeon office or pre surgery nurse liaison [phone] if any additional questions.
[2024-10-17 13:51] VITALS: BMI 33.2
[2024-10-17 14:23] VITALS: BP 184/78; PULSE 75; RESP 18; TEMP 36.7; O2SAT 100
[2024-10-31] VITALS (24 sets, daily range): BP systolic 121–155; BP diastolic 54–92; PULSE 74–100; RESP 10–13; TEMP 37; O2SAT 93–99; BMI 33.0
--- NOTE | ~2024-10-31 | XR_ITS ---
EXAMINATION: [id number] DATE: 10/31/2024 10:20 INDICATION: Postoperative evaluation following left total knee arthroplasty. TECHNIQUE: Anteroposterior and lateral views of the left knee were obtained. COMPARISON: None. FINDINGS: Left total knee arthroplasty without patellar resurfacing appears well seated and in near anatomic al ignment. No fractures identified. Anterior skin duane and expected postoperative subcutaneous and intra-articular gas. IMPRESSION: 1. Left total knee arthroplasty, negative for postoperative purposes. Reviewed, dictated and finalized at location A. NCE CENTER DISPLAY BUILDER
--- OUTSIDE RECORDS SUMMARY | 2024-10-31 00:46 | XMS_ITS | Patient Health Summary ---
Author Organization [facility] Address [address] [place] [address] Care Team Providers Care Customs Examiner Name Role Phone Unavailable Primary Care Provider Unavailabl e Note from [facility],non-owned Affiliates and Associated Physician Practices is amultiple site organization consisting of ambulatory clinics and hospital sitesin [place], [place], [place]. This disclosure is being madepursuant to the Care Everywhere program and may not contain all information available regarding this patient. Last updated 18.[facility] Social History Tobacco Use Types Packs/Day Years Used Date Smoking Tobacco: Never Assessed Sex and Gender Information Value Date Recorded Sex Assigned at Not on file Gender Identity Not on file Sexual Orientation Not on file
--- OUTSIDE RECORDS SUMMARY | 2024-10-31 00:46 | XMS_ITS | Referral Summary ---
Author Organization [facility] Address [address] [place] [address] Care Team Providers Care Orchardist Name Role Phone Unavailable Primary Care Provider Unavailabl e Source Comments [facility],non-owned Affiliates and Associated Physician Practices is amultiple site organization consisting of ambulatory clinics and hospital sitesin [place], [place], [place] and [place]. This disclosure is being madepursuant to the Care Everywhere program and may not contain all information available regarding this patient. Last updated 18.[facility] Social History Tobacco Use Types Packs/Day Years Used Date Smoking Tobacco: Never Assessed Sex and Gender Information Value Date Recorded Sex Assigned at Not on file Gender Identity Not on file Sexual Orientation Not on file Plan of Treatment Not on file
--- OUTSIDE RECORDS SUMMARY | 2024-10-31 00:46 | XMS_ITS | Clinical Summary ---
Author Organization [facility] [employer] Address [address] [place] [address] Care Team Providers Care Market Manager Name Role Phone Unavailable Primary Care Provider Unavailabl e Source Comments [facility],non-owned Affiliates and Associated Physician Practices is amultiple site organization consisting of ambulatory clinics and hospital sitesin [place], [place], [place] and [place]. This disclosure is being madepursuant to the Care Everywhere program and may not contain all information available regarding this patient. Last updated 18.[facility] [employer] Social History Tobacco Use Types Packs/Day Years [...]
--- OUTSIDE RECORDS SUMMARY | 2024-10-31 00:46 | XMS_ITS | Clinical Summary ---
Author Organization [facility] Address [address] [place] [address] Care Team Providers Care Jewel Hole Finish Opener Name Role Phone Rachel Estrella PA-C Primary Care Provider [phone] Allergies Active Allergy Reactions Criticality Noted Date [...] Comments Blood Pressure 138/86 10/24/2023 9:22 AM SPRING FLOOR SERVICE WORKER Pulse 78 10/24/2023 9:22 AM SPRING FLOOR SERVICE WORKER Temperature 36.2 C (97.1 F) 10/24/2023 9:22 AM SPRING FLOOR SERVICE WORKER Respiratory Rate 16 10/24/2023 9:22 AM SPRING FLOOR SERVICE WORKER Oxygen Saturation 98% 10/24/2023 9:22 AM SPRING FLOOR SERVICE WORKER Inhaled Oxygen Concentration - - Weight 90.4 kg (199 lb 3.2 oz) 10/24/2023 9:22 A M SPRING FLOOR SERVICE WORKER Height 162.6 cm (5' 4 ) 10/24/2023 9:22 AM SPRING FLOOR SERVICE WORKER Body Mass Index 34.19 10/24/2023 9:22 AM SPRING FLOOR SERVICE WORKER Plan of Treatment Health Maintenance Due Date [...] 11/10/2020 Influenza Adult (#1) 2024 PHQ-2 (Physician [place]) 09/12/2024 10/24/2023 PHQ-2 (Physician [place]) 10/24/2024 10/24/2023 RSV Immunization or 60+ Years [...] age to complete this topic Insurance MEDICARE [facility] Care Teams Jewel Hole Finish Opener Relationship Specialty Start Date End Date Rachel Estrella PA-C [address] [place], [place] [address] [place] [address] PCP - General PHYSICIAN TERMINAL MANAGER 05/05/23
--- OUTSIDE RECORDS SUMMARY | 2024-10-31 00:46 | XMS_ITS | Continuity of Care Document ---
Author Organization [facility] Address [address] [place] [address] Phone Care Team Providers Care Simulation Engineer Name Role Phone Gina Davila DO Unavailable Unavailable Advance Directives Directive Yes / No Effective Date File Name No Information Encounters Encounter Description Practice Location Reason(s) For Visit Diagnoses Date Provider Providers Copied on Encounter [facility], [address], [place], [place], [id number], [place] tel:[phone] [facility] No Information Giovanni Fuentes. [address] [address], [place], [place], [id number], [place]. tel:[phone] Referring Provider: Gina Zavala [address] [address], [place], [address] . tel:[phone] Family History Family Member Type Diagnosis Age At Onset No Information Payers Payer name Insurance type Covered constitution party ID Authoriza tirebecca(s) [employer] [id number] Social History Type Description Quantity Date Captured [...]
--- NOTE | 2024-10-31 07:18 | WPDHPUPDATE1 ---
History and Physical Update Update Date/Time: 10/31/24 07:18 History and Physical has been reviewed, including an updated exam of the patient. There are NO changes in the patient's condition. Risks, benefits, and alternatives have been discussed and questions answered. Patient agrees to proceed with procedure.
[2024-10-31] MEDS: LACTATED RINGERS 1,000 ML 30 ML IV CONT ×2 (07:30→09:58)
[2024-10-31] MEDS: ACETAMINOPHEN 500 MG TABLET 1000 MG PO (07:30)
[2024-10-31] MEDS: TRANEXAMIC ACID 1,000MG/ISO100 1,000 MG/100 ML BAG 200 MG IVPB (07:30)
--- NOTE | 2024-10-31 07:36 | WPDANESPNB ---
Anes - Peripheral Nerve Block Date/Time: 10/31/24 07:36 I have discussed with the patient/family/POA the placement of a peripheral nerve block for post-operative pain management, including associated risks, benefits, complications, and side effects. Alternative methods of post-operative analgesia were detailed. Questions were solicited and answers provided to the satisfaction of the patient/family/POA. Time-Out: A pre-procedural Time-Out was completed immediately before starting the procedure and confirmed: Patient Identification, Site, Procedure, Patient Position and the Availability of Requisite Equipment. Clinical Indications: Acute post-operative pain management requested by the operative surgeon. Nerve Block Insertion Note Anes-nerve block: adductor canal left Patient position: supine Skin prep: chlorhexidine Needle: 22 gauge, stimulating, insulated echogenic needle. Needle length: 80 mm Technique: ultrasound Injectate: other (Bupiv 0.5% 15 mls. ) Observations: tolerated well Complications: none Procedure start time:: 728 Procedure end time::
[2024-10-31] MEDS: ceFAZolin 2 GM/D5W 50 ML 2 GM/50 ML BAG IVPB (07:38)
[2024-10-31] MEDS: SODIUM CHLORIDE 0.9% IV 37.7 ML, MORPHINE SULFATE INJ (*CRX) 2 MG, ROPivacaine HCL 1% 2... INFILTRATE (08:13)
[2024-10-31] MEDS: TRANEXAMIC ACID 1,000 MG/10 ML AMPUL 1000 MG IV PUSH (09:01)
--- NOTE | 2024-10-31 09:58 | W.PM.PROC2 ---
Procedure Note - Detailed Date of Procedure 10/31/24 Pre-op Diagnosis left knee OA Post-op Diagnosis Same Procedure Performed L TKA Surgeon Sandoval Negrete MD Anesthesia General Description of Procedure THE LEFT KNEE WAS PREPPED AND DRAPED IN THE STERILE FASHION. A MIDLINE SKIN INCISION WAS MADE. A MEDIAL PARAPATELLAR ARTHROTOMY WAS MADE. THE PATELLA WAS EVERTED. THERE WAS TRICOMPARTMENT DJD. THERE WAS MINIMAL PATELLA DJD. AN INTRAMEDULLARY RAYSA WAS PLACED IN THE FEMUR. A DISTAL FEMORAL CUT WAS MADE IN 5 DEGREES OF VALGUS REMOVING APPROXIMATELY 8 MM OF BONE FROM THE DISTAL FEMUR. THE FEMUR WAS SIZED TO 3. A 3 FEMORAL CUTTING BLOCK WAS PLACED IN 3 DEGREES OF EXTERNAL ROTATION AND IN ALIGNMENT WITH TEGAN'S LINE AND THE TRANSEPICONDYLAR AXIS. ANTERIOR POSTERIOR AND CHAMFER CUTS WERE MADE. THE CUTS WERE EXCELLENT. NEXT AN INTRAMEDULLARY CUTTING GUIDE WAS PLACED IN THE TIBIA. A TRANS TIBIAL CUT WAS MADE ALONG THE LONG AXIS OF THE TIBIA. APPROXIMATELY 8 MM OF BONE WAS REMOVED FROM THE HIGH SIDE OF THE TIBIA. THE TIBIA WAS THEN PLANED TO A SMOOTH SURFACE. POSTERIOR FEMORAL OSTEOPHYTES WERE REMOVED FROM THE FEMORAL CONDYLES. A 3 TIBIAL TRIAL WAS PLACED IN ALIGNMENT WITH THE 1/3 MEDIAL ASPECT OF THE TIBIAL TUBERCLE. THEN A 3 FEMORAL TRIAL COMPONENT WAS PLACED. BOTH HAD EXCELLENT FITS. EVENTUALLY AN 11 CS POLYETHYLENE TRIAL COMPONENT WAS PLACED. THE KNEE WAS TAKEN THROUGH A RANGE OF MOTION. THE KNEE CAME OUT TO FULL EXTENSION. THERE WAS NO ABNORMAL TILT TO THE PATELLA. THERE WAS GOOD A/P AND VARUS/VALGUS STABILITY. THERE WAS NO EXCESSIVE ROLL BACK WITH FLEXION. THE TRIAL COMPONENTS WERE REMOVED. THEN A JONH 3 FEMORAL COMPONENT AND A 3 TIBIAL COMPONENT WITH AN 11 CS POLYETHYLENE COMPONENT WERE PRESS FIT INTO PLACE. THE FIT WAS FLUSH WITH THE BONE ON BOTH COMPONENTS. THE KNEE WAS TAKEN THROUGH A ROM AGAIN AND FOUND TO BE STABLE WITH NO PATELLA TILT NO EXCESSIVE ROLL BACK WITH FLEXION AND GOOD STABILITY WITH COMPLETE AND FULL EXTENSION. THE KNEE WAS IRRIGATED WITH STERILE BETADINE AND WATER FOR ABOUT 3 MINUTES. THE BLEEDERS WERE CAUTERIZED. THE ARTHROTOMY WAS REPAIRED WITH NUMBER 1 VICRYL. THE SUB CUTANEOUS LAYER WITH 2-0 VICRYL AND THE SKIN WITH TANA. THE WOUND WAS WASHED AND A STERILE DRESSING WAS APPLIED. PATIENT WAS EXTUBATED. Estimated Blood Loss -150.0 Pathology None sent Complications No immediate complications Condition Stable Disposition PACU
[2024-10-31] MEDS: fentaNYL CITRATE INJ (*CRX) 100 MCG/2 ML VIAL 25 MCG IV PUSH (10:52)
[2024-10-31] MEDS: oxyCODONE HCL (*CRX) 5 MG TAB IR PO (13:44)
--- NOTE | 2024-10-31 14:10 | SUR.PHASEII ---
1405- Care Coordination saw patient. Per Care Coordination patient already has home health set up. Home health company is aware patient is discharging today and will need to be seen a day earlier than originally planned.
== END 2024-10-31 15:30 | disposition home health service (06) ==
PROVIDERS: PCP Physician Assistant Medical; Visit Provider Orthopaedic Surgery
PROC: (CPT 27447; principal; 2024-10-31 07:30)
DX: M17.12 Unilateral primary osteoarthritis, left knee (principal); M25.762 Osteophyte, left knee; G89.18 Other acute postprocedural pain; I10 Essential (primary) hypertension; E03.9 Hypothyroidism, unspecified; E53.8 Deficiency of other specified B group vitamins; M16.10 Unilateral primary osteoarthritis, unspecified hip; M47.896 Other spondylosis, lumbar region; Z79.891 Long term (current) use of opiate analgesic; Z79.1 Long term (current) use of non-steroidal anti-inflammatories (NSAID); Z98.890 Other specified postprocedural states; Z98.51 Tubal ligation status; Z98.1 Arthrodesis status; Z90.49 Acquired absence of other specified parts of digestive tract; Z80.1 Family history of malignant neoplasm of trachea, bronchus and lung; Z82.49 Family history of ischemic heart disease and other diseases of the circulatory system
CPT/HCPCS: 64447; 27447; 36415; 73560; 86850; 86900; 86901; 97110; 97116; 97161; 97165; A9270; C1776; J0171; J0690; J1100; J1171; J1885; J2003; J2250; J2270; J2405; J2704; J2795; J3010; J7120